=== PATIENT | female | born 1950 | race Caucasian/White ===

== ENCOUNTER → 2019-07-02 11:47 | Outpatient (CLI) | payer OTHER, SELFPAY ==
--- NOTE | 2019-07-02 11:57 | US_ITS ---
PROCEDURE: ULTRASOUND GUIDED THORACENTESIS. DATE: July 02, 2019. INDICATION: Female, 69 years old. Left pleural effusion. PHYSICIAN: Jayy Magdaleno M.D. PROCEDURE: The risks, benefits, and alternatives to the procedure were explained to the patient. The specific risks of bleeding, infection, and pneumothorax requiring chest tube insertion were discussed and accepted. Written informed consent was obtained. Ultrasonographic evaluation of the left lower pleural space was carried out. An adequate pocket was identified. The patient was placed in the sitting, upright position. The overlying skin was prepped and draped in sterile fashion. 1% lidocaine was administered subcutaneously for local anesthesia. Under ultrasound guidance, a 5 [place] thoracentesis needle/catheter system was advanced into the left posterior lower pleural fluid collection. Approximately 300 mL of blood tinge fluid was drained. The catheter was removed, and a sterile dressing was applied. The patient tolerated the procedure well. A chest x-ray was ordered. US/Thoracentesis W US IMPRESSION: Ultrasound-guided left thoracentesis. Electronically Signed: Jayy Magdaleno, at 13:44 EDT , Service support ,
[2019-07-02 12:23] LABS: Prothrombin Time (Protime)PT. 12.4 SECONDS (11.7-14.9)
[2019-07-02 12:47] VITALS: BP 127/62; BP 128/82; PULSE 103; PULSE 104; RESP 16; RESP 18; TEMP 36.4; O2SAT 96
--- NOTE | 2019-07-02 13:05 | RAD_ITS ---
STUDY: X-RAY CHEST REASON FOR EXAM: Female, 69 years old. POST THORACENTESIS LEFT LUNG TECHNIQUE: AP inspiration and expiration views. COMPARISON: None. FINDINGS: The patient is status post left thoracentesis. There is no evidence of pneumothorax. Multiple bilateral pulmonary nodules. Pleural parenchymal changes at the right lung base. RAD/Chest Insp/Exp 2 View IMPRESSION: Status post left thoracentesis. There is no evidence of pneumothorax. Electronically Signed: Jayy Magdaleno, at 13:19 EDT , Service support ,
== END ==
PROVIDERS: Referring Provider Internal Medicine Hematology & Oncology; Visit Provider Internal Medicine Hematology & Oncology
DX: C79.81 Secondary malignant neoplasm of breast (principal); J91.0 Malignant pleural effusion
CPT/HCPCS: 32555; 36415; 71046; 85610

== ENCOUNTER → 2021-07-06 | Outpatient (CLI) | payer SELFPAY ==
[2021-07-06 16:36] LABS: Absolute Lymphocyte Count 1.05 X10^3/uL (0.83-4.51); Absolute Neutrophil Count 3.8 X10^3/uL (2.0-7.7); Basophil# 0.05 X10^3/uL; Basophil% 0.9 % (0-1); Eosinophil# 0.22 X10^3/uL; Eosinophils% 3.8 % (0-5); Hematocrit 34.7 % (37-47); Hemoglobin 11.8 g/dL (12.0-15.0); Lymphocyte # 1.05 X10^3/ul (0.83-4.51); Lymphocyte % 18.3 % (19-41); Mean Corpuscular Hgb 34.2 pg (27.0-32.0); Mean Corpuscular Volume 100.6 fL (81-99); Mean Platelet Vol. 9.3 fl (6.2-12.0); Monocyte# 0.65 X10^3/uL; Monocyte% 11.3 % (0-10); NRBC Flagged by Analyzer 0 % (0-5); Neutrophil # 3.75 X10^3/uL (2.7-7.7); Neutrophil % 65.4 % (47-70); Platelet Count 234 K/mm3 (150-450); RBC Distribution Width CV 14.9 % (11.6-14.6); RBC Distribution Width SD 54.8 fl (35.1-43.9); Red Blood Count 3.45 M/mm3 (4.2-5.4); White Blood Count 5.7 K/mm3 (4.4-11.0)
[2021-07-06 17:01] LABS: ALB/GLOB Ratio 0.9 RATIO (0.9-2.4); AST(SGOT) 29 U/L (15-37); Alanine Aminotransfer ALT/SGPT 17 U/L (13-56); Albumin, Serum 3.2 g/dL (3.2-5.0); Alkaline Phosphatase 71 U/L (45-117); Anion Gap 4 (5-15); BUN 16 mg/dL (7-18); BUN/Creat Ratio 33.8 RATIO (10-20); Calcium,Total 8.2 mg/dL (8.5-10.1); Chloride 114 mmol/L (98-107); Creatinine, Serum 0.47 mg/dL (0.55-1.02); EST Glomerular Filtration Rate 138 mL/min (>60); Est Glom Filt Rate - Afr Amer 167 mL/min (>60); Globulin 3.7 g/dL (2.2-4.2); Glucose 104 mg/dL (74-106); LDH 284 U/L (84-246); Protein, Total 6.9 g/dL (6.4-8.2); Sodium Level 144 mmol/L (136-145)
== END | disposition home or self-care (01) ==
LOC: BIMLAB 15:56
PROVIDERS: PCP Internal Medicine; Referring Provider Internal Medicine; Visit Provider Internal Medicine
DX: M19.041 Primary osteoarthritis, right hand (principal); C78.00 Secondary malignant neoplasm of unspecified lung; C78.2 Secondary malignant neoplasm of pleura; C79.51 Secondary malignant neoplasm of bone; C50.912 Malignant neoplasm of unspecified site of left female breast
CPT/HCPCS: 36415; 80053; 83615; 84550; 85025

== ENCOUNTER → 2021-07-28 | Outpatient (CLI) | payer OTHER, SELFPAY ==
[2021-07-28 12:16] LABS: Mucous, Urine 0 SEEN /hpf (<or=2+)
[2021-07-28 15:13] LABS: Color, Urine Yellow (Yellow); Glucose, Dipstick Normal (Normal); Ketone-Dipstick Negative (Negative); Leukocyte Esterase-Dipstick 500 /ul (Negative); Nitrite-Dipstick Negative (Negative); Occult Blood-Urine 25 /ul (Negative); Protein-Dipstick Negative (Negative); Urine Bilirubin Dipstick Negative (Negative); Urine Clarity Sl. Cloudy (Clear); Urine Urobilinogen Normal (Normal)
[2021-07-28 15:22] LABS: Bacteria 2+ /hpf (None Seen); Red Blood Cells-Urine 0-5 SEEN /hpf (0-5); Squamous Epithelial Cells - UA 0-5 SEEN /hpf (5-10); White Blood Cells 25-50 SEEN /hpf (0-5)
[2021-07-28 15:34] LABS: Absolute Lymphocyte Count 1.03 X10^3/uL (0.83-4.51); Absolute Neutrophil Count 4.5 X10^3/uL (2.0-7.7); Basophil# 0.05 X10^3/uL; Basophil% 0.8 % (0-1); Eosinophil# 0.11 X10^3/uL; Eosinophils% 1.8 % (0-5); Hematocrit 37.9 % (37-47); Hemoglobin 12.5 g/dL (12.0-15.0); Lymphocyte # 1.03 X10^3/ul (0.83-4.51); Lymphocyte % 16.9 % (19-41); Mean Corpuscular Hgb 35.3 pg (27.0-32.0); Mean Corpuscular Volume 107.1 fL (81-99); Mean Platelet Vol. 10.9 fl (6.2-12.0); Monocyte# 0.42 X10^3/uL; Monocyte% 6.9 % (0-10); NRBC Flagged by Analyzer 0 % (0-5); Neutrophil # 4.45 X10^3/uL (2.7-7.7); Neutrophil % 73.3 % (47-70); POSITIVE COUNT YES; RBC Distribution Width CV 15.5 % (11.6-14.6); RBC Distribution Width SD 62.4 fl (35.1-43.9); Red Blood Count 3.54 M/mm3 (4.2-5.4); White Blood Count 6.1 K/mm3 (4.4-11.0)
[2021-07-28 15:36] LABS: Differential Indicated SCAN CRITERIA MET
[2021-07-28 15:37] LABS: Vitamin D,25 Hydroxy 18.8 ng/mL
[2021-07-28 15:49] LABS: ALB/GLOB Ratio 0.9 RATIO (0.9-2.4); AST(SGOT) 33 U/L (15-37); Alanine Aminotransfer ALT/SGPT 23 U/L (13-56); Albumin, Serum 3.6 g/dL (3.2-5.0); Alkaline Phosphatase 113 U/L (45-117); Anion Gap 5 (5-15); BUN 15 mg/dL (7-18); BUN/Creat Ratio 25.8 RATIO (10-20); Calcium,Total 8.9 mg/dL (8.5-10.1); Chloride 105 mmol/L (98-107); Creatinine, Serum 0.58 mg/dL (0.55-1.02); EST Glomerular Filtration Rate 109 mL/min (>60); Est Glom Filt Rate - Afr Amer 132 mL/min (>60); Globulin 4.2 g/dL (2.2-4.2); Glucose 122 mg/dL (74-106); Potassium 3.3 mmol/L (3.5-5.1); Protein, Total 7.8 g/dL (6.4-8.2); Sodium Level 139 mmol/L (136-145)
[2021-07-28 16:00] LABS: Platelet Estimate ADEQUATE (ADEQ)
== END | disposition home or self-care (01) ==
LOC: BIMLAB 12:15
PROVIDERS: PCP Internal Medicine; Referring Provider Internal Medicine; Visit Provider Internal Medicine
DX: N39.0 Urinary tract infection, site not specified (principal); C78.00 Secondary malignant neoplasm of unspecified lung; C79.51 Secondary malignant neoplasm of bone; T80.810A Extravasation of vesicant antineoplastic chemotherapy, initial encounter; M19.041 Primary osteoarthritis, right hand
CPT/HCPCS: 36415; 80053; 81001; 82306; 84443; 85025

== ENCOUNTER → 2021-08-17 | Outpatient (CLI) | payer SELFPAY ==
--- NOTE | 2021-08-17 14:22 | US_ITS ---
STUDY: RENAL ULTRASOUND - COMPLETE REASON FOR EXAM: Female, 71 years old. UTIs TECHNIQUE: Ultrasound evaluation of the kidneys was performed with real-time and static reed-scale imaging. COMPARISON: None. FINDINGS: RIGHT KIDNEY: Normal location of the right kidney, which is normal in size. The right kidney measures 11.1 x 5.4 x 3.7 cm. There is a normal cortex of the right kidney. The renal cortex measures 1.1 cm. There is no right renal mass or cyst. There are no right renal calculi. There is no right hydronephrosis. DISTAL RIGHT URETER: There is non-visualization of the distal right ureter. There is no demonstrated right ureterovesical junction calculus. There is a visualized right ureteral jet. LEFT KIDNEY: Normal location of the left kidney, which is normal in size. The left kidney measures 12 x 4.1 x 5.8 cm. There is a normal cortex of the left kidney. The renal cortex measures 1.5 cm. There is no left renal mass or cyst. There are no left renal calculi. There is mild hydronephrosis of the left kidney. DISTAL LEFT URETER: There is non-visualization of the distal left ureter. There is no demonstrated left ureterovesical junction calculus. There is a visualized left ureteral jet. AORTA: There is no elongation or tortuosity of the abdominal aorta. I.V.C.: The IVC is patent. BLADDER: The distended urinary bladder has a volume of 259.16 ml. The empty urinary bladder has a volume of 25.11 ml. There is a normal wall thickness of the distended urinary bladder. There is no demonstrated mass within the urinary there is a 5 mm bladder calcification. Bladder. There are no demonstrated bladder calculi. US/Kidney and Bladder IMPRESSION: Mild left hydronephrosis of uncertain etiology Sonographically normal right kidney 5 mm bladder calcification Electronically Signed: Roberto Barry MD at 15:14 EDT ,
== END | disposition home or self-care (01) ==
PROVIDERS: PCP Internal Medicine; Visit Provider Internal Medicine
DX: N39.0 Urinary tract infection, site not specified (principal)
CPT/HCPCS: 76770

== ENCOUNTER → 2021-08-20 | Outpatient (CLI) | payer SELFPAY ==
--- NOTE | 2021-08-20 12:34 | ECHOD_ITS ---
Reason For Study: Murmur Procedure This was a 2D Doppler, Color Flow transthoracic echocardiogram. Myocardial strain analysis was performed in this exam to aid in the assessment of cardiac function. Exam performed in department. Left Ventricle Normal LV size. Left ventricular systolic function is normal. The estimated ejection fraction is 65 %. Stage 1 diastolic dysfunction. No regional wall motion abnormalities noted. Right Ventricle Normal RV size. Normal systolic function. Atria Normal left atrium. Normal right atrium. Mitral Valve Normal mitral valve. Tricuspid Valve Normal tricuspid valve. Mild tricuspid valve insufficiency. Pulmonary artery systolic pressure is 25 mmHg. Aortic Valve Trisinus/trileaflet aortic valve. Moderate focal aortic valve calcification. Peak aortic valve gradient 18 mmHg. Mean aortic valve gradient 10 mmHg. Mild aortic stenosis. Pulmonic Valve Normal pulmonic valve. Great Vessels Normal aortic root. The pulmonary artery is normal size. Normal inferior vena cava. Pericardium/Pleural No pericardial effusion. MMode/2D Measurements & Calculations LVIDd: 3.3 cm IVSd: 1.1 cm LVOT diam: 2.0 cm LVIDs: 2.3 cm LVPWd: 1.2 cm LVOT area: 3.0 cm2 RVDd: 2.1 cm FS: 31.8 % Ao root diam: 2.7 cm LAV(MOD-bp): 30.0 ml LVAd ap4: 17.1 cm2 ACS: 0.62 cm LAV(MOD-bp) Indexed: 18.9 ml/m2 LVLd ap4: 6.2 cm LAV(MOD-sp2): 33.9 ml EDV(MOD-sp4): 39.4 ml LAV(MOD-sp4): 24.0 ml EDV(sp4-el): 39.9 ml LVAs ap4: 10.1 cm2 LVLs ap4: 5.5 cm ESV(MOD-sp4): 17.1 ml ESV(sp4-el): 15.8 ml EF(MOD-sp4): 56.6 % EF(sp4-el): 60.5 % SV(MOD-sp4): 22.3 ml SV(sp4-el): 24.1 ml LA A4 area: 11.5 cm2 LA dimension(2D): 2.9 cm RA A4 area: 10.1 cm2 Doppler Measurements & Calculations MV E max martin: 63.6 cm/sec Lat Peak E' Martin: 5.8 cm/sec Med Peak E' Martin: 3.5 cm/sec MV A max martin: 92.7 cm/sec E/E' lat: 11.0 E/E' med: 17.9 MV E/A: 0.69 Ao V2 max: 213.9 cm/sec LV V1 max: 77.5 cm/sec SV(LVOT): 48.7 ml Ao max P.3 mmHg LV V1 max P.4 mmHg Ao V2 mean: 153.7 cm/sec LV V1 mean P.3 mmHg Ao mean P.2 mmHg LV V1 mean: 54.9 cm/sec Ao V2 VTI: 48.3 cm LV V1 VTI: 16.3 cm NABEEL(I,D): 1.0 cm2 NABEEL(V,D): 1.1 cm2 PA V2 max: 63.4 cm/sec TR max martin: 232.6 cm/sec TR max P.6 mmHg ECHO/Echo Complete Interpretation Summary Normal LV size. Left ventricular systolic function is normal. The estimated ejection fraction is 65 %. Stage 1 diastolic dysfunction. Moderate focal aortic valve calcification. Mild aortic stenosis. The global longitudinal strain is normal. The global longitudinal strain = -17. 4 % (normal). Ordering Physician: Rashida Alston Referring Physician: Rashida Alston Performed By: Carlene Wheeler, DINAH, RVT
== END | disposition home or self-care (01) ==
LOC: CVS 12:33
PROVIDERS: PCP Internal Medicine; Referring Provider Internal Medicine; Visit Provider Internal Medicine
DX: I35.2 Nonrheumatic aortic (valve) stenosis with insufficiency (principal); R06.00 Dyspnea, unspecified
CPT/HCPCS: 93306

== ENCOUNTER → 2021-08-30 | Outpatient (CLI) | payer SELFPAY ==
--- NOTE | 2021-08-30 14:45 | CT_ITS ---
EXAM: CT ABDOMEN AND PELVIS WITHOUT AND WITH INTRAVENOUS CONTRAST CLINICAL INDICATION: BLADDER STONE TECHNIQUE: Helically acquired images were obtained of the abdomen and pelvis without and with intravenous contrast. This CT exam was performed using one or more of the following dose reduction techniques: automated exposure control, adjustment of the mA and/or kV according to patient size, and/or use of iterative reconstruction technique. This report was created using [employer] report generation technology. CONTRAST: 100ML ISOVUE 300 COMPARISON: None. FINDINGS: LOWER THORAX: There is a partially loculated collection of the left lung base. There are multiple pulmonary nodules in the lung bases compatible with metastatic disease. No cardiomegaly. No significant pericardial effusion. ABDOMEN: LIVER: Unremarkable. Homogeneous. No focal mass. GALLBLADDER AND BILE DUCTS: Unremarkable. No calcified gallstones. No gallbladder distention or wall edema. No intra- or extrahepatic biliary ductal dilation. PANCREAS: Unremarkable. No focal cystic or solid mass. SPLEEN: Unremarkable. Normal size without focal cystic or solid mass. ADRENALS: Unremarkable. No nodules. KIDNEYS AND URETERS: Recommendation normal excretion of contrast from both kidneys. Normal renal size and position. No hydronephrosis. STOMACH AND BOWEL: Unremarkable. No stomach or bowel distention. No focal inflammatory change. PELVIS: APPENDIX: No evidence of acute appendicitis. BLADDER: There is no evidence of a bladder stone. REPRODUCTIVE: Unremarkable as visualized. No mass. ABDOMEN and PELVIS: INTRAPERITONEAL SPACE: Unremarkable. No ascites or other fluid collection. No free air. BONES/JOINTS: Unremarkable. No suspicious lytic or blastic abnormality. SOFT TISSUES: Unremarkable. No discrete abdominal or pelvic wall hernia. VASCULATURE: Unremarkable. Abdominal aorta is non-dilated. LYMPH NODES: Unremarkable. No enlarged lymph nodes. CT/CT Abd/Pelvis W/WO Contrast IMPRESSION: 1. Multiple pulmonary nodules within both lungs compatible with metastatic disease. There is a partially loculated fluid collection at the right lung base. 2. No acute abnormalities in the abdomen or pelvis. There is no evidence of a bladder stone. A 4 Electronically Signed: Henry Juárez MD at 16:24 EDT ,
[2021-08-30 14:56] LABS: CREATININE FINGERSTICK < 0.9 mg/dL (0.55-1.02); EGFR FINGERSTICK > 60.0000 mL/min (>60)
== END | disposition home or self-care (01) ==
LOC: CT 14:42
PROVIDERS: PCP Internal Medicine; Referring Provider Urology; Visit Provider Urology
DX: N21.0 Calculus in bladder (principal); N39.0 Urinary tract infection, site not specified; N13.30 Unspecified hydronephrosis
CPT/HCPCS: 74178; Q9967; A4216

== ENCOUNTER → 2021-09-23 | Outpatient (CLI) | payer SELFPAY ==
[2021-09-23 11:32] LABS: Mucous, Urine 0 SEEN /hpf (<or=2+); Squamous Epithelial Cells - UA 0 SEEN /hpf (5-10)
[2021-09-23 12:23] LABS: Color, Urine Yellow (Yellow); Glucose, Dipstick Normal (Normal); Ketone-Dipstick 5 mg/dl (Negative); Leukocyte Esterase-Dipstick 100 /ul (Negative); Nitrite-Dipstick Positive (Negative); Occult Blood-Urine 10 /ul (Negative); Protein-Dipstick 30 mg/dl (Negative); Specific Gravity, Urine 1.025 (1.002-1.030); Urine Clarity Cloudy (Clear); Urine Urobilinogen Normal (Normal)
[2021-09-23 12:25] LABS: Urine Bilirubin Dipstick 1 mg/dL (Negative)
[2021-09-23 12:27] LABS: Absolute Lymphocyte Count 0.74 X10^3/uL (0.83-4.51); Absolute Neutrophil Count 3.5 X10^3/uL (2.0-7.7); Basophil# 0.05 X10^3/uL; Hematocrit 32.5 % (37-47); Hemoglobin 11.2 g/dL (12.0-15.0); Lymphocyte # 0.74 X10^3/ul (0.83-4.51); Lymphocyte % 14.7 % (19-41); Mean Corp Hgb Conc 34.5 g/dL (32-36); Mean Corpuscular Hgb 34.7 pg (27.0-32.0); Mean Corpuscular Volume 100.6 fL (81-99); Mean Platelet Vol. 8.9 fl (6.2-12.0); Monocyte# 0.69 X10^3/uL; Monocyte% 13.7 % (0-10); NRBC Flagged by Analyzer 0 % (0-5); Neutrophil # 3.46 X10^3/uL (2.7-7.7); Neutrophil % 68.4 % (47-70); Platelet Count 282 K/mm3 (150-450); RBC Distribution Width CV 13.5 % (11.6-14.6); RBC Distribution Width SD 50.1 fl (35.1-43.9); Red Blood Count 3.23 M/mm3 (4.2-5.4); White Blood Count 5.1 K/mm3 (4.4-11.0)
[2021-09-23 12:31] LABS: Bacteria 3+ /hpf (None Seen); Hyaline Cast 0-5 SEEN /lpf (0-5); Red Blood Cells-Urine 0-5 SEEN /hpf (0-5); White Blood Cells 10-25 SEEN /hpf (0-5)
[2021-09-23 12:47] LABS: ALB/GLOB Ratio 0.8 RATIO (0.9-2.4); AST(SGOT) 26 U/L (15-37); Alanine Aminotransfer ALT/SGPT 21 U/L (13-56); Albumin, Serum 3.4 g/dL (3.2-5.0); Alkaline Phosphatase 112 U/L (45-117); Anion Gap 4 (5-15); BUN 23 mg/dL (7-18); BUN/Creat Ratio 38.9 RATIO (10-20); Calcium,Total 9.7 mg/dL (8.5-10.1); Chloride 111 mmol/L (98-107); Creatinine, Serum 0.59 mg/dL (0.55-1.02); EST Glomerular Filtration Rate 107 mL/min (>60); Est Glom Filt Rate - Afr Amer 129 mL/min (>60); Globulin 4.2 g/dL (2.2-4.2); Glucose 115 mg/dL (74-106); Potassium 3.1 mmol/L (3.5-5.1); Protein, Total 7.6 g/dL (6.4-8.2); Sodium Level 141 mmol/L (136-145)
== END | disposition home or self-care (01) ==
LOC: LAB 11:21
PROVIDERS: PCP Internal Medicine; Visit Provider Internal Medicine
DX: R06.00 Dyspnea, unspecified (principal); C78.00 Secondary malignant neoplasm of unspecified lung; C50.912 Malignant neoplasm of unspecified site of left female breast; N39.0 Urinary tract infection, site not specified
CPT/HCPCS: 36415; 80053; 81001; 85025; 87077; 87086; 87088; 87186

== ENCOUNTER → 2021-10-11 | Outpatient (CLI) | payer OTHER, SELFPAY ==
[2021-10-11 11:27] LABS: Absolute Neutrophil Count 3.5 X10^3/uL (2.0-7.7); Basophil# 0.06 X10^3/uL; Basophil% 1.1 % (0-1); Eosinophil# 0.13 X10^3/uL; Eosinophils% 2.4 % (0-5); Hematocrit 34.9 % (37-47); Hemoglobin 11.7 g/dL (12.0-15.0); Lymphocyte % 20.5 % (19-41); Mean Corp Hgb Conc 33.5 g/dL (32-36); Mean Corpuscular Volume 101.5 fL (81-99); Mean Platelet Vol. 8.2 fl (6.2-12.0); Monocyte# 0.53 X10^3/uL; Monocyte% 9.9 % (0-10); NRBC Flagged by Analyzer 0 % (0-5); Neutrophil # 3.51 X10^3/uL (2.7-7.7); Neutrophil % 65.5 % (47-70); Platelet Count 554 K/mm3 (150-450); RBC Distribution Width CV 13.4 % (11.6-14.6); RBC Distribution Width SD 49.1 fl (35.1-43.9); Red Blood Count 3.44 M/mm3 (4.2-5.4); White Blood Count 5.4 K/mm3 (4.4-11.0)
[2021-10-11 12:03] LABS: ALB/GLOB Ratio 0.7 RATIO (0.9-2.4); AST(SGOT) 32 U/L (15-37); Alanine Aminotransfer ALT/SGPT 17 U/L (13-56); Albumin, Serum 3.2 g/dL (3.2-5.0); Alkaline Phosphatase 110 U/L (45-117); Anion Gap 4 (5-15); BUN 14 mg/dL (7-18); BUN/Creat Ratio 20.5 RATIO (10-20); Calcium,Total 9.3 mg/dL (8.5-10.1); Chloride 102 mmol/L (98-107); Creatinine, Serum 0.68 mg/dL (0.55-1.02); EST Glomerular Filtration Rate 90 mL/min (>60); Est Glom Filt Rate - Afr Amer 109 mL/min (>60); Globulin 4.9 g/dL (2.2-4.2); Glucose 116 mg/dL (74-106); Potassium 3.3 mmol/L (3.5-5.1); Protein, Total 8.1 g/dL (6.4-8.2); Sodium Level 135 mmol/L (136-145)
== END | disposition home or self-care (01) ==
LOC: LAB 10:38
PROVIDERS: PCP Internal Medicine; Referring Provider Internal Medicine; Visit Provider Internal Medicine
DX: R91.8 Other nonspecific abnormal finding of lung field (principal); C78.2 Secondary malignant neoplasm of pleura; C79.51 Secondary malignant neoplasm of bone; C50.912 Malignant neoplasm of unspecified site of left female breast; N39.0 Urinary tract infection, site not specified; Z87.09 Personal history of other diseases of the respiratory system
CPT/HCPCS: 36415; 80053; 85025

== ENCOUNTER → 2021-11-16 | Outpatient (CLI) | payer SELFPAY, OTHER ==
--- NOTE | 2021-11-16 13:40 | RAD_ITS ---
STUDY: X-RAY CHEST REASON FOR EXAM: Female, 71 years old. PLEURAL EFFUSION -- CA left breast TECHNIQUE: Single AP portable view of the chest. COMPARISON: None. FINDINGS: There is hyperinflation of the lungs consistent with chronic obstructive lung disease (COPD). 3 cm opacity in the upper left lung worrisome for mass and correlation with CT the chest with contrast is recommended. Small right pleural effusion with right lower lobe pneumonia or atelectasis. Tiny left pleural effusion. Normal size heart. Normal mediastinum and cesar. Normal visualized pulmonary arteries. Normal visualized aortic arch and descending thoracic aorta. Normal visualized thoracic spine. Normal visualized ribs, clavicles, and shoulders. There is no demonstrated abnormality of the visualized soft tissue structures of the upper abdomen. RAD/Chest PA and Lateral IMPRESSION: 1. Emphysema with a possible 3 cm left upper lobe lung mass. Correlation with CT of the chest with contrast is recommended. 2. Small right pleural effusion and tiny left pleural effusion with right lower lobe pneumonia or atelectasis. Electronically Signed: Bandar Luis MD at 14:13 EDT ,
== END | disposition home or self-care (01) ==
PROVIDERS: PCP Internal Medicine; Referring Provider Legal Medicine; Visit Provider Legal Medicine
DX: J90 Pleural effusion, not elsewhere classified (principal)
CPT/HCPCS: 71046

== ENCOUNTER 2021-11-18 05:26 | Day surgery (SDC) | payer SELFPAY, OTHER ==
[2021-11-18] VITALS (7 sets, daily range): BP systolic 102–123; BP diastolic 62–77; PULSE 75–84; RESP 16–18; TEMP 36.2–36.7; O2SAT 95–97; BMI 16.1
--- NOTE | 2021-11-18 05:36 | PCM.HP.BLA ---
History and Physical Date of Admission: 11/18/21 Visit Reasons:?PORT PLACEMENT Chief Complaint: port placement [employer] Required: No Is patient in pain?: No Medications Vitamin B17 1 tab PO BID 09/23/21 [History Confirmed 11/16/21] alprazolam 1 mg tablet (Xanax) 0.5 mg PO QHS 09/23/21 [History Confirmed 11/16/21] magnesium 200 mg tablet 200 mg PO DAILY 09/23/21 [History Confirmed 11/16/21] skemca 500 mg PO BID 09/23/21 [History Confirmed 11/16/21] travoprost 0.004 % eye drops 1 drp ophthalmic (eye) BID 09/23/21 [History Confirmed 11/16/21] adiolol PO 1XD 10/06/21 [History Confirmed 11/16/21] cephalexin 500 mg capsule 500 mg PO BID #60 caps 10/06/21 [Rx Confirmed 11/16/21] prunelax PO 10/06/21 [History Confirmed 11/16/21] similavol PO 1XD 10/06/21 [History Confirmed 11/16/21] ergocalciferol (vitamin D2) 1,250 mcg (50,000 unit) capsule (Vitamin D2) 1,250 mcg PO 11/16/21 [History Confirmed 11/16/21] exemestane 25 mg tablet 25 mg PO 11/16/21 [History Confirmed 11/16/21] levothyroxine 75 mcg tablet 75 mcg PO 11/16/21 [History Confirmed 11/16/21] PFSH Medical History? Aortic stenosis Bone metastasis Breast cancer Cancer Diarrhea Knee pain Lung nodules Malignant neoplasm metastatic to lung Malignant neoplasm of left breast Nonrheumatic aortic (valve) stenosis with insufficiency Pleural metastasis Surgical History? Hx of left mastectomy Family History? Brother CAD (coronary artery disease)Brother CAD (coronary artery disease)Aunt Aortic valve stenosis Social History? Smoking Status:? Never smoker alcohol intake:? never substance use type:? does not use caffeine:? Yes Type: coffee Number of servings: 1 HPI HPI HPI: YANI ELLIOTT, is a 71 F who presents to the office today for surgical consultation regarding a port placement.? The patient is referred by Dr. Rashida Alston.? She has widely metastatic breast cancer.? She is wanted to stay on chemotherapy.? She has received a fair amount of her treatment in [place] she recently has been evaluated by Dr. Rashida Alston.? She also states that she has been evaluated by a physician in [facility].? A port has been recommended to facilitate her chemotherapy management.? Apparently she has paresthesias of her arms and difficulty identifying arm veins.? The patient states that in approximately 2017 she previously had a port placed when she was initially diagnosed with her breast cancer.? She had a left mastectomy.? She thinks the port was on the left but looking at incisions I think it was on the right.? She has had significant weight loss. ROS General General: Yes weight change, fatigue and breast cancer; No appetite, colon cancer or weakness HEENT HEENT: Yes difficulty swallowing; No eye injury, eye surgery, swollen glands or hoarseness Endo Endocrine: Yes thyroid disease; No diabetes mellitus, thyroid cancer, Hair loss, heat intolerance or cold intolerance Skin Skin: No rash or changing moles Breast Breast: No left breast lump, right breast lump, nipple discharge, breast pain, abnormal mammogram, abnormal US or breast enlargement Musc Musculoskeletal: Yes back problems and arthritis; No rheumatoid arthritis, gout or joint pain Cardio Cardiovascular: Yes murmur and heart disease; No pacemaker, atrial fibrillation, high blood pressure, heart attack, heart stent, palpitations, shortness of breat with exertion or chest pain Psych Psychiatric: Yes depression and anxiety; No hearing voices Resp Respiratory: Yes shortness of breath, No sleep apnea, Yes cough, No COPD, No asthma, No emphysema and No wheezing Gastro Gastrointestinal: Yes abdominal pain, Yes nausea or vomiting, Yes diarrhea, Yes constipation, No blood in stool, No acid reflux, No hemorrhoids, No ulcers, No gallbladder problem and No black,tarry stools Tony Hematologic: No blood thinners, No blood disorders, No bleeding, No anemia and No blood clots Neuro Neurologic: No system reviewed and no additional complaints, except as documented, No as per HPI, No abnormal gait, No abnormal hearing, No abnormal movements, No abnormal speech, No behavioral changes, No burning sensations, No confusion, No convulsions, No disequilibrium, No dizziness, No localized weakness, No frequent falls, No headache(s), No lack of coordination, No loss of vision, No memory loss, Yes numbness, No other visual disturbances, No radicular pain, No restless legs, No sensory deficit, No syncope, Yes tingling, No tremor(s), No weakness and No other Exam Const General: cooperative Nutritional Appearance: underweight Orientation: alert, awake and oriented x3 HENMT Other: Patient generally appears cachectic Neck Other: Very slender emaciated neck Chest Other: Loss of soft tissue and subcutaneous fat throughout.? Thoracic kyphosis Resp Effort & Inspection: normal respiratory effort Cardio Other: Diminished breath sounds right base.? Clear bilateral upper lobes GI Palpation: soft Other: Nontender Skin General: no rashes or lesions noted Neuro General: patient alert and patient awake Extrem General: no calf tenderness Psych Appearance: grossly normal Assessment and Plan Assessment and Plan (1) Extravasation of vesicant chemotherapy: ?Status:?Acute (2) Pleural metastasis: ?Status:?Acute (3) Bone metastasis: ?Status:?Acute (4) History of pleural effusion: ?Status:?Acute (5) Breast cancer: ?Status:?Acute Plan The patient has been referred for urgent placement of a port so she can continue her chemotherapy for metastatic breast cancer.? She is noted to be quite emaciated.? I have instructed her that I will try placement in the right internal jugular but will have to position the port lower on the chest wall in order to obtain skin and subcutaneous coverage.? If I am unable to find a patent right internal jugular vein then we will attempt from the left.? She has had an opportunity to ask and have questions answered.? She is aware that her current less than body weight will make this more technically challenging.? She has a history of a previous port placement which also may make this more challenging.? She has had an opportunity to ask and have questions answered.? She is desiring and proceeding with her chemotherapy management.? I appreciate the opportunity of assisting with her surgical care. Copy: Dr. Rashida Rao M.D., F.A.C.S. \I have re-examined the patient. There are no clinical changes since date of exam. Arnoldo Rao M.D., F.A.C.S.
--- NOTE | 2021-11-18 05:37 | EX.PCM.DISCH ---
Discharge Instructions Procedure Port-A-Cath Diet Discharge Diet: No restrictions (Pain medication may cause nausea. You should typically eat light foods as you take your pain medication.) Activity Discharge Activity: Return to Normal Activity and May Shower (Leave the bandage on for 2-3 days. When you remove the bandage, leave the steri-strips intact for 1 week) Additional Activity Instructions:: You may shower over your plastic dressings. As noted below. He may remove your plastic dressings in approximately 3 days and then leave the Steri-Strips in place for 1 week. You may use any [id number] pain medication that is appropriate for you. You may also use your already provided pain medicine prescription that you have available at home as needed. Dressing / Incision Additional Dressing/Incision Instructions:: Leave the bandage on for 2-3 days. When you remove the bandage, leave the steri-strips intact until they fall off. Follow Up Care Please Follow Up With: Arnoldo Rao MD When: Call [phone] for any concerns. Routine office follow-up would not be required unless a problem arises. Discharge Plan Admission Primary Reason for Your Visit: Metastatic breast cancer Attending Provider: Arnoldo Rao Primary Care Provider: Rashida Alston Discharge Orders/Prescriptions Prescriptions: Continued alprazolam [Xanax] 1 mg tablet 0.5 mg PO QHS travoprost 0.004 % drops 1 drp ophthalmic (eye) BID similavol 1 tab PO BID prunelax 1 tab PO DAILY Label Comments: 2 tabs at bedtime adiolol 50 mg PO PRN PRN (Reason: Pain) Label Comments: tramadol from [place] 50 mg levothyroxine 75 mcg tablet 75 mcg PO DAILY Label Comments: TAKE ONE TABLET BY MOUTH EVERY MORNING ON AN EMPTY STOMACH ergocalciferol (vitamin D2) [Vitamin D2] 1,250 mcg (50,000 unit) capsule 1,250 mcg PO MOFR Label Comments: TAKE ONE CAPSULE BY MOUTH TWICE A WEEK exemestane 25 mg tablet 25 mg PO DAILY Label Comments: TAKE ONE TABLET BY MOUTH DAILY melatonin 5 mg Tablet 5 mg PO QHS Referrals / Follow Up: Rashida Alston MD [Primary Care Provider] - Disposition Disposition (needs filled in before D/C Order can be placed): Home, Self Care
[2021-11-18] MEDS: Lactated Ringers 1,000 ML 15 ML IV (06:51)
[2021-11-18] MEDS: Cefazolin 2 GM in 0.9% Normal Saline 100 ML IV (07:21)
[2021-11-18] MEDS: Lidocaine 1% (20 ml mdv) 20 ML Vial (07:42)
[2021-11-18] MEDS: Bupivacaine 0.25% 30 ML Vial (07:42)
--- NOTE | 2021-11-18 08:14 | PCM.OPRPT ---
Report of Operation Date of Procedure: 11/18/21 Pre-Operative Diagnosis: Metastatic breast cancer Post-Operative Diagnosis: Same Surgery/Procedure Performed:: Right internal jugular 6 [place] PowerPort placement Description of Surgical Findings:: Timeout and informed consent was obtained. 71-year-old female was taken to the operating placed on the table underwent monitored anesthesia care. Ancef 2 g were given intravenously. The right neck and chest were sterilely prepped and draped. Under ultrasound guidance 1% lidocaine mixed 50-50 with 0.25% Marcaine was used as a local anesthetic. Throughout the procedure 18 cc was used. Local was instilled and a micropuncture technique. Knee again access to the right internal jugular vein followed by Seldinger wire. Local was instilled deeply down upon the right chest wall due to the patient's emaciation she had evidence of previous transverse incision from her previous port right chest wall and I went slightly more inferior to that after local was instilled made a transverse incision use electrocautery to make a subcutaneous pocket. The tubing was tunneled from the chest to the neck site. Then sheath dilator was placed in the tubing advanced to the sheath the sheath was split the catheter with fluoroscopy was positioned at the SVC atrial junction. It was amputated connected to the port and secured with a port attachment device. Port was secured in the pocket with 2-0 Nurolon. Skin edges approximated combination of interrupted 3-0 Vicryl and interrupted 5-0 Vicryl subdermal stitches. The neck was closed with interrupted 5-0 Vicryl subdermal stitch. Steri-Strips Telfa OpSite dressings applied. The port accessed and aspirated easily it was flushed with saline and was flushed with 2 cc of heparinized saline. Specimens none. Drains none. Blood loss minimal. The patient was taken to the recovery room in satisfactory addition without apparent complication. Stat protocol chest x-ray is pending. Arnoldo Rao M.D., F.A.C.S. Surgeon: Arnoldo Rao Type of Anesthesia: Local MAC Anesthesiologist: Ingrid Reed
--- NOTE | 2021-11-18 08:35 | RAD_ITS ---
STUDY: X-RAY CHEST REASON FOR EXAM: Female, 71 years old. Port placement. TECHNIQUE: Single AP portable view of the chest. COMPARISON: Comparison is made with prior study dated 10/20/2021. FINDINGS: A right-sided estefani catheter has been placed with the tip at the junction of the superior vena cava and right atrium. EKG electrodes are seen Residual pleural parenchymal changes at the right lung base. There has been improved aeration as compared to prior study. Stable infiltrate in the left lower lobe. Blunting of the left costophrenic angle. Hyperinflation. Normal size heart. Normal mediastinum and cesar. Normal visualized pulmonary arteries. Normal visualized aortic arch and descending thoracic aorta. Normal visualized thoracic spine. Normal visualized ribs, clavicles, and shoulders. There is no demonstrated abnormality of the visualized soft tissue structures of the upper abdomen. RAD/Chest 1 View (Portable) IMPRESSION: The tip of the right portacatheter is at the junction of the superior vena cava and right atrium. Improved aeration of the right lung base although residual pleural parenchymal changes are seen. Electronically Signed: Jayy Magdaleno MD at 8:50 EDT ,
== END 2021-11-18 10:02 | disposition home or self-care (01) ==
LOC: SDC 05:33 → AC 05:33
PROVIDERS: PCP Internal Medicine; Referring Provider Surgery; Visit Provider Surgery
PROC: (CPT 36571; principal; 2021-11-18 07:15)
DX: Z45.2 Encounter for adjustment and management of vascular access device (principal); C79.51 Secondary malignant neoplasm of bone; C78.2 Secondary malignant neoplasm of pleura; C50.919 Malignant neoplasm of unspecified site of unspecified female breast; F41.9 Anxiety disorder, unspecified; M19.90 Unspecified osteoarthritis, unspecified site; Z79.899 Other long term (current) drug therapy; F32.A Depression, unspecified; E07.9 Disorder of thyroid, unspecified; Z79.890 Hormone replacement therapy
CPT/HCPCS: 36571; 00532; 71045; 77001; J7040; J7120; J2405

== ENCOUNTER → 2022-01-04 | Outpatient (CLI) | payer SELFPAY ==
--- NOTE | 2022-01-04 16:20 | RAD_ITS ---
STUDY: X-RAY CHEST REASON FOR EXAM: Female, 71 years old. Pleural effusions. TECHNIQUE: PA and lateral views of the chest. COMPARISON: 11/18/2021. FINDINGS: Stable right jugular Port-A-Cath. There is persistent small bilateral pleural effusions, right greater than left. Associated bibasilar atelectatic changes. The possibility of a right nasal infiltrate cannot be ruled out. No new mass or infiltrate is noted. Normal size heart. Normal mediastinum and cesar. Normal visualized pulmonary arteries. Normal visualized aortic arch and descending thoracic aorta. There are diffuse degenerative changes of the visualized thoracic spine. There is degenerative osteoarthritis of the bilateral shoulders. There is no demonstrated abnormality of the visualized soft tissue structures of the upper abdomen. RAD/Chest PA and Lateral IMPRESSION: Persistent bilateral pleural effusions. There is no interval change when compared with the prior exam. Electronically Signed: Rm Cole DO at 18:51 EDT ,
== END | disposition home or self-care (01) ==
PROVIDERS: PCP Internal Medicine; Referring Provider Legal Medicine; Visit Provider Legal Medicine
DX: J90 Pleural effusion, not elsewhere classified (principal); C50.912 Malignant neoplasm of unspecified site of left female breast
CPT/HCPCS: 71046

== ENCOUNTER → 2022-02-07 | Outpatient (CLI) | payer SELFPAY ==
[2022-02-07 10:57] LABS: Hematocrit 29.3 % (37-47); Hemoglobin 9.5 g/dL (12.0-15.0); Mean Corp Hgb Conc 32.4 g/dL (32-36); Mean Corpuscular Hgb 34.3 pg (27.0-32.0); Mean Corpuscular Volume 105.8 fL (81-99); Mean Platelet Vol. 9.1 fl (6.2-12.0); POSITIVE MORPHOLOGY YES; Platelet Count 266 K/mm3 (150-450); RBC Distribution Width CV 20.1 % (11.6-14.6); RBC Distribution Width SD 75.7 fl (35.1-43.9); Red Blood Count 2.77 M/mm3 (4.2-5.4)
[2022-02-07 11:10] LABS: Scan Indicated on CBC? Y/N YES- FLAGS NOTED
[2022-02-07 11:23] LABS: ALB/GLOB Ratio 0.8 RATIO (0.9-2.4); AST(SGOT) 32 U/L (15-37); Alanine Aminotransfer ALT/SGPT 26 U/L (13-56); Albumin, Serum 3.1 g/dL (3.2-5.0); Alkaline Phosphatase 60 U/L (45-117); Anion Gap 7 (5-15); BUN 5 mg/dL (7-18); BUN/Creat Ratio 16.8 RATIO (10-20); Calcium,Total 8.8 mg/dL (8.5-10.1); Chloride 103 mmol/L (98-107); EST Glomerular Filtration Rate 236 mL/min (>60); Est Glom Filt Rate - Afr Amer 286 mL/min (>60); Glucose 87 mg/dL (74-106); Potassium 2.5 mmol/L (3.5-5.1); Protein, Total 7.1 g/dL (6.4-8.2); Sodium Level 142 mmol/L (136-145)
== END | disposition home or self-care (01) ==
PROVIDERS: PCP Internal Medicine
DX: C50.911 Malignant neoplasm of unspecified site of right female breast (principal)
CPT/HCPCS: 36591; 80053; 85027; A4216

== ENCOUNTER 2022-09-29 08:10 | Outpatient (CLI) | payer SELFPAY ==
[2022-09-29 08:37] LABS: Hematocrit 36.4 % (37-47); Hemoglobin 11.4 g/dL (12.0-15.0); Mean Corp Hgb Conc 31.3 g/dL (32-36); Mean Corpuscular Hgb 30.2 pg (27.0-32.0); Mean Corpuscular Volume 96.3 fL (81-99); Mean Platelet Vol. 8.3 fl (6.2-12.0); Platelet Count 523 K/mm3 (150-450); RBC Distribution Width CV 17.7 % (11.6-14.6); RBC Distribution Width SD 62.8 fl (35.1-43.9); Red Blood Count 3.78 M/mm3 (4.2-5.4); White Blood Count 5.9 K/mm3 (4.4-11.0)
[2022-09-29 08:53] LABS: ALB/GLOB Ratio 0.7 RATIO (0.9-2.4); AST(SGOT) 36 U/L (15-37); Alanine Aminotransfer ALT/SGPT 27 U/L (13-56); Albumin, Serum 3.3 g/dL (3.2-5.0); Alkaline Phosphatase 80 U/L (45-117); Anion Gap 3 (5-15); BUN 14 mg/dL (7-18); BUN/Creat Ratio 21.9 RATIO (10-20); Calcium,Total 9.1 mg/dL (8.5-10.1); Chloride 103 mmol/L (98-107); Creatinine, Serum 0.64 mg/dL (0.55-1.02); EST Glomerular Filtration Rate 97 mL/min (>60); Est Glom Filt Rate - Afr Amer 118 mL/min (>60); Globulin 4.7 g/dL (2.2-4.2); Glucose 99 mg/dL (74-106); Potassium 2.9 mmol/L (3.5-5.1); Sodium Level 140 mmol/L (136-145)
== END 2022-09-29 08:11 | disposition home or self-care (01) ==
PROVIDERS: PCP Internal Medicine; Referring Provider Legal Medicine; Visit Provider Legal Medicine
DX: M19.90 Unspecified osteoarthritis, unspecified site (principal)
CPT/HCPCS: 36591; 80053; 82378; 83735; 85027; 86300; A4216

== ENCOUNTER 2022-10-20 08:33 | Outpatient (CLI) | payer OTHER, SELFPAY ==
[2022-10-20 09:07] LABS: Hematocrit 37.6 % (37-47); Hemoglobin 12.1 g/dL (12.0-15.0); Mean Corp Hgb Conc 32.2 g/dL (32-36); Mean Corpuscular Hgb 31.6 pg (27.0-32.0); Mean Corpuscular Volume 98.2 fL (81-99); Mean Platelet Vol. 8.6 fl (6.2-12.0); Platelet Count 486 K/mm3 (150-450); RBC Distribution Width CV 17.6 % (11.6-14.6); RBC Distribution Width SD 63.7 fl (35.1-43.9); Red Blood Count 3.83 M/mm3 (4.2-5.4); White Blood Count 6.1 K/mm3 (4.4-11.0)
[2022-10-20 09:22] LABS: ALB/GLOB Ratio 0.8 RATIO (0.9-2.4); AST(SGOT) 31 U/L (15-37); Alanine Aminotransfer ALT/SGPT 29 U/L (13-56); Albumin, Serum 3.6 g/dL (3.2-5.0); Alkaline Phosphatase 90 U/L (45-117); Anion Gap 3 (5-15); BUN 9 mg/dL (7-18); BUN/Creat Ratio 15.4 RATIO (10-20); Calcium,Total 9.7 mg/dL (8.5-10.1); Chloride 104 mmol/L (98-107); Creatinine, Serum 0.58 mg/dL (0.55-1.02); EST Glomerular Filtration Rate 108 mL/min (>60); Est Glom Filt Rate - Afr Amer 131 mL/min (>60); Globulin 4.7 g/dL (2.2-4.2); Glucose 88 mg/dL (74-106); Potassium 3.5 mmol/L (3.5-5.1); Protein, Total 8.3 g/dL (6.4-8.2); Sodium Level 139 mmol/L (136-145)
[2022-10-21 04:07] LABS: Carcinoembryonic Antigen 21.1 ng/mL (0.0-4.7)
== END 2022-10-20 08:34 | disposition home or self-care (01) ==
LOC: MEDOUTP 08:34
PROVIDERS: PCP Internal Medicine; Referring Provider Legal Medicine; Visit Provider Legal Medicine
DX: C50.912 Malignant neoplasm of unspecified site of left female breast (principal)
CPT/HCPCS: 36591; 80053; 82378; 85027; 86300; A4216

== ENCOUNTER 2022-10-24 08:53 | Outpatient (CLI) | payer OTHER, SELFPAY ==
[2022-10-24 09:09] LABS: Absolute Lymphocyte Count 0.75 X10^3/uL (0.83-4.51); Absolute Neutrophil Count 3.1 X10^3/uL (2.0-7.7); Basophil# 0.05 X10^3/uL; Basophil% 1.2 % (0-1); Eosinophil# 0.04 X10^3/uL; Hematocrit 34.4 % (37-47); Hemoglobin 11.4 g/dL (12.0-15.0); Lymphocyte # 0.75 X10^3/ul (0.83-4.51); Lymphocyte % 17.9 % (19-41); Mean Corp Hgb Conc 33.1 g/dL (32-36); Mean Corpuscular Hgb 31.7 pg (27.0-32.0); Mean Corpuscular Volume 95.6 fL (81-99); Mean Platelet Vol. 8.7 fl (6.2-12.0); Monocyte# 0.19 X10^3/uL; Monocyte% 4.5 % (0-10); NRBC Flagged by Analyzer 0 % (0-5); Neutrophil # 3.14 X10^3/uL (2.7-7.7); Neutrophil % 75.2 % (47-70); Platelet Count 415 K/mm3 (150-450); RBC Distribution Width CV 17.1 % (11.6-14.6); RBC Distribution Width SD 60.2 fl (35.1-43.9); White Blood Count 4.2 K/mm3 (4.4-11.0)
== END 2022-10-24 08:54 | disposition home or self-care (01) ==
LOC: MEDOUTP 08:54
PROVIDERS: PCP Internal Medicine; Referring Provider Legal Medicine; Visit Provider Legal Medicine
DX: C50.912 Malignant neoplasm of unspecified site of left female breast (principal)
CPT/HCPCS: 36591; 85025; A4216

== ENCOUNTER 2022-10-31 08:10 | Outpatient (CLI) | payer OTHER, SELFPAY ==
[2022-10-31 08:32] LABS: Hematocrit 37.1 % (37-47); Hemoglobin 11.9 g/dL (12.0-15.0); Mean Corp Hgb Conc 32.1 g/dL (32-36); Mean Corpuscular Hgb 31.6 pg (27.0-32.0); Mean Corpuscular Volume 98.4 fL (81-99); Mean Platelet Vol. 8.8 fl (6.2-12.0); Platelet Count 300 K/mm3 (150-450); RBC Distribution Width CV 17.3 % (11.6-14.6); RBC Distribution Width SD 60.8 fl (35.1-43.9); Red Blood Count 3.77 M/mm3 (4.2-5.4); White Blood Count 5.9 K/mm3 (4.4-11.0)
== END 2022-10-31 08:11 | disposition home or self-care (01) ==
LOC: MEDOUTP 08:10
PROVIDERS: PCP Internal Medicine; Referring Provider Legal Medicine; Visit Provider Legal Medicine
DX: C50.912 Malignant neoplasm of unspecified site of left female breast (principal)
CPT/HCPCS: 36591; 85027; A4216